=== PATIENT | female | born 1955 | race Caucasian/White ===

== ENCOUNTER 2017-05-07 10:08 | Outpatient (CLI) | payer OTHER ==
[2017-05-07 11:07] LABS: eGFR (African) > 60; eGFR (Non-African) > 60
== END 2017-05-07 10:10 ==
LOC: LAB 10:08
PROVIDERS: ATTEND Family Medicine
DX: Z00.00 Encounter for general adult medical examination without abnormal findings (principal)
CPT/HCPCS: 36415; 80053; 80061; 84443

== ENCOUNTER 2017-11-17 09:17 | Outpatient (CLI) | payer OTHER ==
--- NOTE | 2017-11-17 10:01 | Diagnostic Imaging Report ---
MIKY ROBERTSON [facility] [address] [facility] [address] [address] Report Submission Date: November 17, 2017 9:47:01 AM CDT Patient Study Name: ELVIN GALAN Date: November 17, 2017 9:26:38 AM CDT Modality Type: DX Gender: F Description: LOWER EXTREMITY : 51 Institution: [facility] Physician: MIKY ROBERTSON Examination: Plain film right foot History: PAIN/SWELLING X 2 MONTHS HX OF GOUT (Hx) Findings: 3 views of the right foot demonstrates articular degenerative changes. No fracture or dislocation. Inferior calcaneal spur. No soft tissue swelling. No joint effusion. Impression: Degenerative changes. No acute osseous process. Electronically signed on November 17, 2017 9:47:01 AM CDT by: Fernando LOZA
== END 2017-11-17 09:19 ==
LOC: LAB 09:17
PROVIDERS: ATTEND Family Medicine
DX: M79.671 Pain in right foot (principal)
CPT/HCPCS: 36415; 73630; 84550

== ENCOUNTER 2017-12-01 13:11 | Outpatient (CLI) | payer OTHER | END 2017-12-01 13:12 | LOC: POD 13:11 | PROVIDERS: ATTEND Podiatrist | DX: M20.41 Other hammer toe(s) (acquired), right foot (principal); M77.51 Other enthesopathy of right foot and ankle; S93.402A Sprain of unspecified ligament of left ankle, initial encounter; X58.XXXA Exposure to other specified factors, initial encounter; Y92.9 Unspecified place or not applicable; Y93.9 Activity, unspecified; Y99.9 Unspecified external cause status | CPT/HCPCS: 99213 ==

== ENCOUNTER 2018-05-10 09:26 | Outpatient (CLI) | payer OTHER ==
[2018-05-10 10:59] LABS: eGFR (Non-African) > 60
== END 2018-05-10 13:14 ==
LOC: LAB 09:26
PROVIDERS: ATTEND Family Medicine
DX: M1A.00X0 Idiopathic chronic gout, unspecified site, without tophus (tophi) (principal); E03.9 Hypothyroidism, unspecified; E78.2 Mixed hyperlipidemia
CPT/HCPCS: 36415; 80053; 80061; 84443; 84550